=== PATIENT | male | born 1950 | race Caucasian/White ===

== ENCOUNTER 2017-01-08 07:44 | Day surgery (SDC) | payer MEDICARE, BC ==
--- NOTE | ~2017-01-08 | EGD ---
EGD REPORT [facility] [address] [address] NAME: KIRSTEN WILSON : 50 STATUS : REG [facility]#: [id number] AGE: 66 ADM/REG DATE : 01/08/17 MR#: [id number] REPORT SERV DATE: 01/08/17 DICTATED BY: ZEESHAN SHAFFER DATE: 01/08/17 REPORT STATUS : Draft TRANSCRIBED BY: [facility] DATE: 01/08/17 [facility] Center Patient Name: Kirsten Wilson Date of : 1950 Attending MD: ZEESHAN SHAFFER MD Procedure Date No Time: 01/08/2017 Procedure: Upper GI endoscopy Indications: Dysphagia Referring MD: ROGER RAMOS JR. Medicines: as per anesthesia Complications: No immediate complications. Procedure: Pre-Anesthesia Assessment: - ASA Grade Assessment: II - A patient with mild systemic disease. After obtaining informed consent, the endoscope was passed under direct vision. Throughout the procedure, the patient's blood pressure, pulse, and oxygen saturations were monitored continuously. The GIF [id number] was introduced through the mouth, and advanced to the third part of duodenum. The upper GI endoscopy was accomplished without difficulty. The patient tolerated the procedure. Findings: The examined esophagus was normal. The scope was withdrawn. Dilation was performed with a Natarajan dilator with no resistance at 48 Fr. The entire examined stomach was normal. The cardia and gastric fundus were normal on retroflexion. The examined duodenum was normal. Impression: - Normal esophagus. Dilated. - Normal stomach. - Normal examined duodenum. Recommendation: - Continue present medications. Procedure Code(s): --- Professional --- 79966, Esophagogastroduodenoscopy, flexible, transoral; diagnostic, including collection of specimen(s) by brushing or washing, when performed (separate procedure) 02821, Dilation of esophagus, by unguided sound or bougie, single or multiple passes Diagnosis Code(s): --- Professional --- R13.10, Dysphagia, unspecified EGD REPORT [facility] [address] [place] [address] NAME: KIRSTEN WILSON : [birth year] [place]US [place] [facility] [place] [id number] AGE: 66 ADM/REG DATE : 01/08/17 MR#: [id number] REPORT SERV DATE: 01/08/17 DICTATED BY: ZEESHAN SHAFFER. DATE: 01/08/17 REPORT STATUS : Draft TRANSCRIBED BY: [employer] SERVICES DATE: 01/08/17 CPT copyright 2013 [employer]. All rights reserved. The codes documented in this report are preliminary and upon table games dealer review may be revised to meet current compliance requirements. ZEESHAN SHAFFER MD 01/08/2017 10:25 AM This report has been signed electronically. Number of Addenda: 0 Note Initiated On: 01/08/2017 9:57 AM Scope Withdrawal Time 0 hours 0 minutes 0 seconds [address] [facility] [place] [address]
[~2017-01-08 07:44] MED LIST: ADVIL PO; ASAB PO; DIL2TAB PO; FLOMAX4 PO; LIPITOR10 PO; PERCOCET1 TA3 PO; PR25 PO; TORATAB PO
== END 2017-01-08 23:59 | disposition home or self-care (01) ==
LOC: DMU 07:44
PROVIDERS: Internal Medicine Gastroenterology
PROC: 0DJ08ZZ Inspection of Upper Intestinal Tract, Via Natural or Artificial Opening Endoscopic (ICD-10-PCS; principal; 2017-01-08 09:00)
PROC: 0D750ZZ Dilation of Esophagus, Open Approach (ICD-10-PCS; 2017-01-08 09:00)
DX: R13.10 Dysphagia, unspecified (principal); E78.5 Hyperlipidemia, unspecified; Z88.0 Allergy status to penicillin; Z98.52 Vasectomy status; Z98.890 Other specified postprocedural states